=== PATIENT | female | born 1945 | race Caucasian/White ===

== ENCOUNTER 2024-12-01 18:25 | Inpatient (IN) | payer MEDICAID, MEDICARE, OTHER, SELFPAY ==
[~2024-12-01 18:25] MED LIST: Iopamidol-370 76% 500 ML MDV (1 ML CHARGE) ONE
[2024-12-01 19:06] LABS: Actual Bicarbonate (HCO3v) 21.2 mEq/L (22-28); Analyzer IN Cardio ER; Base Excess -2.6 mEq/L (-2.0 to +3.0); Calcium, Ionized (venous) 1.22 mmol/L (1.16-1.32); Chloride (VBG) 109 mmol/L (98-106); Hematocrit-VBG 47 % (36.0-47.0); Hemoglobin (Hb) 15.9 g/dL (11.7-16.1); Sodium 146 mmol/L (133-146); pH (venous) 7.411 (7.32-7.43)
[2024-12-01] MEDS ORDERED: Albuterol 2.5 MG (0.5 mL) NEB ONE (19:09)
[2024-12-01] MEDS ORDERED: Albuterol 2.5 MG (3 mL) NEB ONE (19:09)
[2024-12-01] MEDS ORDERED: Magnesium 2 GM/50 ML BAG (IN WATER) ONE (19:15)
[2024-12-01 19:28] LABS: PTT 29.4 sec (22.9-36.1)
[2024-12-01 19:30] LABS: Prothrombin Time 13.1 sec (12.0-14.7)
[2024-12-01 19:36] LABS: ALT (SGPT) 16 U/L (Less than 34); AST (SGOT) 53 U/L (11-34); Albumin 3.3 g/dL (3.1-4.5); Alkaline Phosphatase 73 U/L (40-110); Anion Gap 20 mmol/L (10-20); BUN (Urea Nitrogen) 55 mg/dL (9.8-20.1); Bilirubin, Total 0.8 mg/dL (0.3-1.2); CK (CPK) 191 U/L (29-168); Calc. Creatinine Clearance 0 mL/min (70-130); Calcium 9.4 mg/dL (7.8-10.44); Carbon Dioxide 19 mmol/L (23-31); Chloride 111 mmol/L (98-107); Estimated GFR 63; Globulin 3.2 g/dL (2.4-3.5); Glucose 108 mg/dL (83-110); Magnesium 2.4 mg/dL (1.6-2.6); Potassium 3.7 mmol/L (3.5-5.1); Protein, Total 6.5 g/dL (5.8-8.1); Sodium 146 mmol/L (136-145)
[2024-12-01 19:50] LABS: Burr Cells SLIGHT = 2-5 cells HPF (0-1); Ovalocytes SLIGHT = 2-5 cells HPF (0-1); Platelet Adequacy Comment Platelets Decreased
[2024-12-01 20:03] LABS: #Basophils Less than 0.03 10x3/uL (0.0-0.2); #Eosinophils Less than 0.03 10x3/uL (0.0-0.7); %Basophils 0.2 % (0.0-1.0); %Lymphocytes 21.9 % (21.0-51.0); %Monocytes 7.4 % (0.0-10.0); %Neutrophils 69.7 % (42.0-75.0); Hematocrit 44.5 % (36.0-47.0); Hemoglobin 14.8 g/dL (12.0-16.0); Mean Corpuscular HGB CONC 33.3 g/dL (32.0-36.0); Mean Corpuscular Hemoglobin 30.6 pg (27.0-31.0); Mean Corpuscular Volume 91.9 fL (78.0-98.0); Mean Platelet Volume 11.1 fL (7.4-10.4); Platelet Count 92 10x3/uL (130-400); RBC Distribution Width 13.1 % (11.5-14.5); Red Blood Cell (RBC) Count 4.84 mill/uL (4.20-5.40)
[2024-12-01] MEDS ORDERED: cefTRIAXone (ROCEPHIN) 2 GM VIAL ONE (20:13)
[2024-12-01] MEDS ORDERED: Sodium Chloride 0.9% 100 ML ONE (20:14)
[2024-12-01] MEDS ORDERED: Azithromycin 500 MG VIAL ONE (21:37)
[2024-12-01] MEDS ORDERED: Acetaminophen 325 MG TAB PO PRN (22:38)
[2024-12-01] MEDS ORDERED: Pharmacy to Dose : VANC/ABX'S IVPB PRN (22:41)
[2024-12-01] MEDS ORDERED: Albuterol 2.5 MG (3 mL) NEB NEB PRN (23:05)
[2024-12-01] MEDS ORDERED: methylPREDNISolone Sod Succ/PF 125 MG/2 ML VIAL IVP SCH (23:59)
[2024-12-02 00:44] VITALS: BMI 17.4
[2024-12-02] MEDS: Piperacillin/Tazobactam 3.375 GM in Sodium Chloride 0.9% 100 ML IVPB SCH ×2 (00:57→04:53)
[2024-12-02] MEDS: methylPREDNISolone Sod Succ 40 MG VIAL IVP SCH (00:57)
[2024-12-02] MEDS: Lactated Ringer's 1,000 ML IV SCH (01:03)
[2024-12-02] MEDS: Vancomycin 1 GM in Premix 1 BAG IVPB SCH ×2 (01:21→18:13)
[2024-12-02] MEDS: Ipratropium/Albuterol 3 ML NEB NEB SCH ×2 (03:26→18:59)
[2024-12-02 09:34] VITALS: BMI 17.4
[2024-12-02 10:36] LABS: Anion Gap 18 mmol/L (10-20); BUN (Urea Nitrogen) 42 mg/dL (9.8-20.1); Calc. Creatinine Clearance 33 mL/min (70-130); Calcium 9.2 mg/dL (7.8-10.44); Carbon Dioxide 20 mmol/L (23-31); Chloride 112 mmol/L (98-107); Estimated GFR 63; Glucose 202 mg/dL (83-110); Potassium 2.9 mmol/L (3.5-5.1); Sodium 147 mmol/L (136-145)
[2024-12-02 10:42] LABS: Hematocrit 42.1 % (36.0-47.0); Hemoglobin 13.5 g/dL (12.0-16.0); Mean Corpuscular HGB CONC 32.1 g/dL (32.0-36.0); Mean Corpuscular Hemoglobin 30.2 pg (27.0-31.0); Mean Corpuscular Volume 94.2 fL (78.0-98.0); Mean Platelet Volume 11.6 fL (7.4-10.4); Platelet Count 81 10x3/uL (130-400); RBC Distribution Width 13.2 % (11.5-14.5); Red Blood Cell (RBC) Count 4.47 mill/uL (4.20-5.40)
[2024-12-02 10:51] LABS: Troponin I 0.056 ng/mL (< 0.028)
[2024-12-02] MEDS ORDERED: Electrolyte Replacement Protocol 1 EACH FS SCH (11:15)
[2024-12-02 11:27] LABS: Band 2 % (5-11); Burr Cells SLIGHT = 2-5 cells HPF (0-1); Large Platelets 18.8 % (0-5); Monocytes 5 % (0-10); Neutrophil 93 % (42-75); Platelet Adequacy Comment Platelets Decreased; Smudge Cells 9.9 %; Vacuoles SLIGHT
[2024-12-02] MEDS: Potassium Chloride 20 MEQ in Premix 1 BAG IVPB SCH (13:04)
[2024-12-02] MEDS ORDERED: Vancomycin 1 GM in Premix 1 BAG IVPB SCH (15:00)
[2024-12-03 07:09] LABS: Vancomycin, Random 20.9 ug/mL (See Comment)
[2024-12-03] MEDS: 1/2 NS w/Potassium 20 mEq 1,000 ML IV SCH (09:40)
[2024-12-03] MEDS: Nicotine 21 MG PATCH TD SCH (16:00)
[2024-12-03] MEDS: Vancomycin HCl 750 MG in Sodium Chloride 0.9% 250 ML 250 ML IVPB SCH (17:54)
[2024-12-03] MEDS: methylPREDNISolone Sod Succ 40 MG VIAL IVP SCH (19:47)
[2024-12-04] MEDS: Nicotine 21 MG PATCH TD SCH (08:01)
[2024-12-04 17:37] LABS: Hemoglobin 14.1 g/dL (12.0-16.0); Mean Corpuscular HGB CONC 32.8 g/dL (32.0-36.0); Mean Corpuscular Hemoglobin 30.3 pg (27.0-31.0); Mean Corpuscular Volume 92.5 fL (78.0-98.0); Platelet Count 127 10x3/uL (130-400); RBC Distribution Width 13.3 % (11.5-14.5); Red Blood Cell (RBC) Count 4.65 mill/uL (4.20-5.40)
[2024-12-04 17:47] LABS: Anion Gap 15 mmol/L (10-20); BUN (Urea Nitrogen) 27 mg/dL (9.8-20.1); Calc. Creatinine Clearance 40 mL/min (70-130); Calcium 8.4 mg/dL (7.8-10.44); Carbon Dioxide 20 mmol/L (23-31); Chloride 111 mmol/L (98-107); Estimated GFR 81; Glucose 121 mg/dL (83-110); Magnesium 2.1 mg/dL (1.6-2.6); Sodium 142 mmol/L (136-145)
[2024-12-04 18:05] LABS: Band 10 % (5-11); Burr Cells MODERATE= 6-15 cells HPF (0-1); Monocytes 1 % (0-10); Neutrophil 89 % (42-75); Platelet Adequacy Comment Platelets Normal; Poikilocytosis SLIGHT = 6-15 cells HPF (0-5)
[2024-12-04] MEDS: methylPREDNISolone Sod Succ 40 MG VIAL IVP SCH (20:05)
[2024-12-04] MEDS: traMADol HCl 50 MG TAB PO PRN (20:25)
[2024-12-05 08:10] LABS: Hematocrit 43.2 % (36.0-47.0); Hemoglobin 14.6 g/dL (12.0-16.0); Mean Corpuscular HGB CONC 33.8 g/dL (32.0-36.0); Mean Corpuscular Hemoglobin 30.8 pg (27.0-31.0); Mean Corpuscular Volume 91.1 fL (78.0-98.0); Mean Platelet Volume 13.3 fL (7.4-10.4); Platelet Count 102 10x3/uL (130-400); RBC Distribution Width 13.8 % (11.5-14.5); Red Blood Cell (RBC) Count 4.74 mill/uL (4.20-5.40)
[2024-12-05 08:31] LABS: Band 5 % (5-11); Burr Cells MODERATE= 6-15 cells HPF (0-1); Lymphocytes 3 % (21-51); Monocytes 1 % (0-10); Neutrophil 90 % (42-75); Ovalocytes SLIGHT = 2-5 cells HPF (0-1); Platelet Adequacy Comment Platelets Decreased; Poikilocytosis SLIGHT = 6-15 cells HPF (0-5)
[2024-12-05 08:37] LABS: #Basophils 0.22 10x3/uL (0.0-0.2); #Eosinophils Less than 0.03 10x3/uL (0.0-0.7); %Basophils 0.8 % (0.0-1.0); %Lymphocytes 4.1 % (21.0-51.0); %Monocytes 5.1 % (0.0-10.0); %Neutrophils 84.4 % (42.0-75.0)
[2024-12-05 08:52] LABS: Anion Gap 12 mmol/L (10-20); BUN (Urea Nitrogen) 25 mg/dL (9.8-20.1); Calc. Creatinine Clearance 43 mL/min (70-130); Calcium 8.3 mg/dL (7.8-10.44); Carbon Dioxide 21 mmol/L (23-31); Chloride 110 mmol/L (98-107); Estimated GFR 86; Glucose 112 mg/dL (83-110); Sodium 139 mmol/L (136-145)
[2024-12-06 05:02] LABS: Hematocrit 40.4 % (36.0-47.0); Hemoglobin 13.7 g/dL (12.0-16.0); Mean Corpuscular HGB CONC 33.9 g/dL (32.0-36.0); Mean Corpuscular Hemoglobin 30.2 pg (27.0-31.0); Mean Corpuscular Volume 89.2 fL (78.0-98.0); Mean Platelet Volume 11.5 fL (7.4-10.4); Platelet Count 169 10x3/uL (130-400); RBC Distribution Width 13.2 % (11.5-14.5); Red Blood Cell (RBC) Count 4.53 mill/uL (4.20-5.40)
[2024-12-06 05:20] LABS: Anion Gap 12 mmol/L (10-20); BUN (Urea Nitrogen) 23 mg/dL (9.8-20.1); Calc. Creatinine Clearance 42 mL/min (70-130); Calcium 8.1 mg/dL (7.8-10.44); Carbon Dioxide 20 mmol/L (23-31); Chloride 112 mmol/L (98-107); Estimated GFR 85; Glucose 138 mg/dL (83-110); Potassium 3.9 mmol/L (3.5-5.1); Sodium 140 mmol/L (136-145)
[2024-12-06 05:30] LABS: Band 1 % (5-11); Burr Cells SLIGHT = 2-5 cells HPF (0-1); Large Platelets 4.9 % (0-5); Metamyelocyte 2 % (0-0); Monocytes 3 % (0-10); Myelocyte 1 % (0-0); Neutrophil 93 % (42-75); Platelet Adequacy Comment Platelets Normal; Smudge Cells 14.7 %
[2024-12-06] MEDS: predniSONE 20 MG TAB PO SCH (08:27)
[2024-12-06] MEDS: Ondansetron PF 4 MG/2 ML Vial IVP PRN (21:12)
[2024-12-07 06:26] LABS: Anion Gap 15 mmol/L (10-20); BUN (Urea Nitrogen) 26 mg/dL (9.8-20.1); Calc. Creatinine Clearance 43 mL/min (70-130); Calcium 8.8 mg/dL (7.8-10.44); Carbon Dioxide 20 mmol/L (23-31); Chloride 109 mmol/L (98-107); Estimated GFR 86; Glucose 90 mg/dL (83-110); Sodium 140 mmol/L (136-145)
[2024-12-07 08:33] VITALS: TEMP 98
[2024-12-07 08:35] LABS: Hematocrit 48.9 % (36.0-47.0); Hemoglobin 15.8 g/dL (12.0-16.0); Mean Corpuscular HGB CONC 32.3 g/dL (32.0-36.0); Mean Corpuscular Hemoglobin 29.8 pg (27.0-31.0); Mean Corpuscular Volume 92.1 fL (78.0-98.0); Mean Platelet Volume 10.8 fL (7.4-10.4); Platelet Count 205 10x3/uL (130-400); RBC Distribution Width 13.2 % (11.5-14.5); Red Blood Cell (RBC) Count 5.31 mill/uL (4.20-5.40)
[2024-12-07 10:08] LABS: Band 1 % (5-11); Large Platelets 2.9 % (0-5); Lymphocytes 2 % (21-51); Monocytes 5 % (0-10); Neutrophil 87 % (42-75); Platelet Adequacy Comment Platelets Normal; Schistocytes SLIGHT = 2-5 cells HPF (0-1); Smudge Cells 7.8 %
[2024-12-07 11:19] VITALS: BP 170/83
== END 2024-12-07 13:36 | DRG 177 ==
LOC: ERS 18:25 → T4-A 22:36
PROVIDERS: ADMIT Student in an Organized Health Care Education/Training Program; ATTEND Family Medicine
DX: J69.0 Pneumonitis due to inhalation of food and vomit (principal); E43 Unspecified severe protein-calorie malnutrition; I21.A1 Myocardial infarction type 2; J96.01 Acute respiratory failure with hypoxia; S32.018A Other fracture of first lumbar vertebra, initial encounter for closed fracture; J44.1 Chronic obstructive pulmonary disease with (acute) exacerbation; Z68.1 Body mass index [BMI] 19.9 or less, adult; I25.10 Atherosclerotic heart disease of native coronary artery without angina pectoris; E03.9 Hypothyroidism, unspecified; I10 Essential (primary) hypertension; F17.210 Nicotine dependence, cigarettes, uncomplicated; E87.6 Hypokalemia; F03.90 Unspecified dementia, unspecified severity, without behavioral disturbance, psychotic disturbance, mood disturbance, and anxiety; Z79.890 Hormone replacement therapy; Z79.899 Other long term (current) drug therapy; Z66 Do not resuscitate
CPT/HCPCS: 36415; 70450; 71045; 71275; 72125; 72148; 74177; 80048; 80053; 80202; 82550; 82805; 83605; 83735; 83880; 84443; 84484; 85025; 85610; 85730; 87040; 87081; 87428; 93005; 94644; 96365; 96367; 97139; J0456; J0696; J2405; J2543; J2919; J3370; J3475; J3480; J7050; J7120; J7611; J7620; Q9967